=== PATIENT | male | born 1950 | race Caucasian/White ===

== ENCOUNTER 2022-02-09 13:48 | Outpatient (CLI) | payer MEDICARE, MEDICAID ==
[~2022-02-09 13:48] MED LIST: ALB0.5UD IH; ALBU18HF2 INH; ATOR40TA PO; BUDE10.2 INH; FLO0.4C PO; HYDR-3964 PO; IBUP-24 PO; LOP25T PO; METH-797 PO; PANT40TA54 PO; SPIR25TA5 PO; WARF4TAB69 PO
== END 2022-02-09 23:59 | disposition home or self-care (01) ==
LOC: VAS 13:48
PROVIDERS: ATTEND Thoracic Surgery (Cardiothoracic Vascular Surgery)
DX: I72.9 Aneurysm of unspecified site (principal)
CPT/HCPCS: 93926

== ENCOUNTER 2022-02-23 11:51 | Outpatient (CLI) | payer MEDICARE, MEDICAID ==
[2022-02-23 12:42] LABS: ALBUMIN 3.5 G/DL (3.4-5.0); ANION GAP 6 (8-16); BLOOD UREA NITROGEN 21 MG/DL (7-18); BUN/CREATININE RATIO 18.8 (5.4-32.0); CALCIUM 8.7 MG/DL (8.5-10.1); CHLORIDE 104 MMOL/L (99-107); CREATININE 1.12 MG/DL (0.60-1.10); GLUCOSE 112 MG/DL (70-104); SODIUM 131 MMOL/L (135-145); TOTAL CARBON DIOXIDE 20.9 MMOL/L (24-32); eGFR 64 ML/MIN
[2022-02-23 12:45] LABS: POTASSIUM 4.8 MMOL/L (3.5-5.1)
[2022-02-23] MEDS ORDERED: iohexol 350MG/ML 100ml bottle IV ONE (13:31)
[2022-02-23] MEDS ORDERED: iohexol 350 MG/ML 50ML vial IV ONE (13:37)
== END 2022-02-23 23:59 | disposition home or self-care (01) ==
LOC: RAD 11:51
PROVIDERS: ATTEND Internal Medicine Cardiovascular Disease
DX: I71.43 Infrarenal abdominal aortic aneurysm, without rupture (principal); K80.20 Calculus of gallbladder without cholecystitis without obstruction; N32.89 Other specified disorders of bladder; K57.30 Diverticulosis of large intestine without perforation or abscess without bleeding; N40.0 Benign prostatic hyperplasia without lower urinary tract symptoms; I70.203 Unspecified atherosclerosis of native arteries of extremities, bilateral legs; M17.0 Bilateral primary osteoarthritis of knee; M19.072 Primary osteoarthritis, left ankle and foot; M19.071 Primary osteoarthritis, right ankle and foot; Z98.890 Other specified postprocedural states
CPT/HCPCS: 36415; 75635; 80048; J3490; Q9967

== ENCOUNTER 2022-06-21 09:54 | Emergency (ER) | payer MEDICARE, MEDICAID | END 2022-06-21 22:48 | disposition left against medical advice (07) | LOC: ER 09:54 | DX: Z00.8 Encounter for other general examination (principal); Z53.21 Procedure and treatment not carried out due to patient leaving prior to being seen by health care provider ==

== ENCOUNTER 2023-10-31 06:38 | Day surgery (SDC) | payer MEDICARE, MEDICAID ==
[~2023-10-31] VITALS: Ht 180.3 cm; Wt 89.0 kg
[2023-10-31] VITALS (9 sets, daily range): BP systolic 101–134; BP diastolic 68–92; PULSE 61–147; RESP 14–18; TEMP 98.2; O2SAT 96–99
[2023-10-31] MEDS ORDERED: cefazolin 2gm/D5W 100mL 100 ML IV ONE (07:10)
[2023-10-31 07:40] LABS: BASOPHILS # (AUTO) 0.1 X10'3 (0-0.2); BASOPHILS % (AUTO) 0.5 % (0-1); EOSINOPHILS # (AUTO) 0.2 X10'3 (0-0.9); EOSINOPHILS % (AUTO) 1.7 % (0-6); HEMATOCRIT 45.2 % (42.0-52.0); HEMOGLOBIN 15.4 g/dl (14.0-17.9); LYMPHOCYTES # (AUTO) 2.6 X10'3 (1.1-4.8); LYMPHOCYTES % (AUTO) 26.4 % (21-51); MEAN CORPUSCULAR HEMOGLOBIN 33.1 PG (27.0-31.0); MEAN CORPUSCULAR VOLUME 97.4 FL (78-98); MEAN PLATELET VOLUME 7.3 FL (7.4-10.4); MONOCYTES # (AUTO) 0.7 X10'3 (0-0.9); MONOCYTES % (AUTO) 7.1 % (2-12); NEUTROPHILS # (AUTO) 6.4 X10'3 (1.8-7.7); NEUTROPHILS % (AUTO) 64.3 % (42-75); PLATELET COUNT 213 X10'3 (140-440); RED BLOOD COUNT 4.64 X10'6 (4.70-6.10); RED CELL DISTRIBUTION WIDTH 14.9 % (11.5-14.5)
[2023-10-31] MEDS: VANCOMYCIN 1,500MG in normal saline IV soln 300 ML IV ONE (07:43)
[2023-10-31] MEDS: normal saline 1000ml 1,000 ML IV SCH (07:43)
[2023-10-31] MEDS ORDERED: FLUT1BLS4 INH (08:15)
[2023-10-31] MEDS ORDERED: EZET10TA48 PO (08:15)
[2023-10-31] MEDS ORDERED: METO-395 PO (08:15)
[2023-10-31] MEDS ORDERED: RIVA20TA PO (08:15)
[2023-10-31] MEDS ORDERED: MECL-226 PO (08:15)
[2023-10-31 08:16] LABS: INR 1.2 INR; PROTHROMBIN TIME 12.1 SECONDS (9.0-12.0)
[2023-10-31 08:19] LABS: ALBUMIN 3.6 G/DL (3.4-5.0); ANION GAP 11 (8-16); BLOOD UREA NITROGEN 27 MG/DL (7-18); BUN/CREATININE RATIO 20.5 (10.0-20.0); CHLORIDE 104 MMOL/L (99-107); CREATININE 1.32 MG/DL (0.60-1.10); GLUCOSE 117 MG/DL (70-104); SODIUM 135 MMOL/L (135-145); TOTAL CARBON DIOXIDE 19.8 MMOL/L (24-32); eCRCL 52 ML/MIN; eGFR 53 ML/MIN
[2023-10-31] MEDS ORDERED: LIDOcaine 1% W/epiNEPHrine 1:100,000 20ml vial ONE ×2 (08:43→09:03)
[2023-10-31] MEDS ORDERED: midazolam 1 mg/ML 2ml injection ONE ×3 (08:43→09:59)
[2023-10-31] MEDS ORDERED: fentaNYL/PF 50MCG/1 ML 2ML syringe ONE ×2 (08:43→09:59)
[2023-10-31] MEDS ORDERED: vancomycin 1,000mg inj ONE (08:43)
[2023-10-31] MEDS ORDERED: iohexol 350 MG/ML 50ML vial IV ONE (09:38)
[2023-10-31] MEDS ORDERED: normal saline 1000ml 1,000 ML IV SCH (11:25)
[2023-10-31] MEDS ORDERED: CEPH-585 PO (11:48)
[2023-10-31] MEDS: HYDROcodone/acetaminophen 10/325mg tab PO ONE (14:07)
== END 2023-10-31 14:25 | disposition home or self-care (01) ==
LOC: SSTAY O 06:38
PROVIDERS: ATTEND Internal Medicine Cardiovascular Disease
DX: I49.5 Sick sinus syndrome (principal); I44.4 Left anterior fascicular block; I47.10 Supraventricular tachycardia, unspecified; I48.91 Unspecified atrial fibrillation; J44.9 Chronic obstructive pulmonary disease, unspecified; I73.9 Peripheral vascular disease, unspecified; Z86.718 Personal history of other venous thrombosis and embolism; Z79.01 Long term (current) use of anticoagulants; Z79.899 Other long term (current) drug therapy; Z98.41 Cataract extraction status, right eye; Z98.890 Other specified postprocedural states; Z80.6 Family history of leukemia
CPT/HCPCS: 33208; 36415; 71045; 80048; 83735; 85025; 85610; 92960; 93005; 99152; 99153; A4565; C1785; C1898; J2250; J3010; J3370; J3490; J7030; J7040; Q9967; Z7610